=== PATIENT | female | born 1995 | race Caucasian/White ===

== ENCOUNTER 2022-10-15 08:51 | Emergency (ER) | payer MEDICAID, SELFPAY ==
[2022-10-15 09:14] VITALS: BP 130/70; PULSE 60; RESP 18; TEMP 36.4; O2SAT 98; BMI 31.3
--- NOTE | 2022-10-15 09:28 | ED.GENADULT ---
HPI - General Adult General Time Seen by Provider: 09:28 Date Seen: 10/15/22 Chief complaint: Neck Injury/Pain Stated complaint: LT upperbody pain from neck down Time Seen by Provider: 10/15/22 09:16 Source: patient and RN notes reviewed Mode of arrival: ambulatory Limitations: no limitations History of Present Illness HPI narrative: 26-year-old female who comes in with left neck, shoulder, arm, and upper chest pain that has been going on for several days. No known injury. Pain is worse with movement. She has tried ice which made things worse, heat which helped little bit, and massage which was quite painful. She denies shortness of breath or cough. She says she will have occasional numbness in the hand especially the index and middle fingers. Has not noticed any weakness. Related Data Home Medications Medication Instructions Recorded Confirmed albuterol sulfate 90 mcg/actuation 2 puff inhalation QID PRN dyspnea 10/15/22 10/15/22 aerosol inhaler (Ventolin HFA) azelastine 137 mcg (0.1 %) nasal intranasal 10/15/22 spray aerosol benzonatate 100 mg capsule 100 mg PO 3XD PRN cough 10/15/22 10/15/22 escitalopram oxalate 20 mg tablet 20 mg PO QPM 10/15/22 10/15/22 fluticasone propionate 115 2 puff inhalation BID 10/15/22 10/15/22 mcg-salmeterol 21 mcg/actuation HFA inhaler (Advair HFA) methylphenidate HCl 36 mg 72 mg PO QAM 10/15/22 10/15/22 tablet,extended release 24 hr (Concerta) pantoprazole 20 mg tablet,delayed 20 mg PO DAILY 10/15/22 10/15/22 release prazosin 2 mg capsule 2 mg PO QPM 10/15/22 10/15/22 prednisone 20 mg tablet 40 mg PO DAILY 10/15/22 10/15/22 quetiapine 100 mg tablet 50 mg PO QID PRN 10/15/22 10/15/22 quetiapine 25 mg tablet 25 mg PO BID PRN anxiety 10/15/22 10/15/22 Previous Rx's Medication Instructions Recorded cyclobenzaprine 10 mg tablet 10 mg PO TID PRN muscle spasm #10 10/15/22 tabs gabapentin 300 mg capsule 300 mg PO TID #90 caps 10/15/22 oxycodone 5 mg capsule 5 mg PO Q6H PRN pain #10 caps 10/15/22 prednisone 10 mg tablets in a dose See Rx Instructions PO .COMPLEX 10/15/22 pack #31 ea Allergies Allergy/AdvReac Type Severity Reaction Status Date / Time No Known Drug Allergies Allergy Verified 10/15/22 09:13 Exam Narrative: Exam Narrative: General: Well-developed and well-nourished, no acute distress Head: Atraumatic and normocephalic Eyes: Pupils are equal reactive, extraocular motions intact, conjunctiva clear ENT: External nose and ears are normal, posterior pharynx without erythema or exudate Neck: Left paraspinous cervical tenderness, no midline tenderness, full spontaneous range of motion the neck Heart: Regular rate and rhythm no murmurs or thrills Lungs: Clear to auscultation bilaterally without wheezes or crackles Abdomen: Soft, nontender, nondistended with active bowel sounds Musculoskeletal: Left cervical and thoracic paraspinous, trapezius, and rhomboid tenderness. Tenderness of the left upper pectoral muscle. Neurologic: Awake, alert, and oriented x3, no gross focal neurologic deficits, cranial nerves intact as tested. Left arm strength with beaver trapper, wrist extension and flexion, biceps flexion extension intact. Sensation of the left arm intact. Psych: Mood and affect are appropriate Skin: No rashes Const: Vital Signs, click to edit/add: Vital Signs - 24 hr 10/15/22 09:14 Temperature 97.5 F L Pulse Rate [Left P ulse Oximeter] 60 Respiratory Rate 18 Blood Pressure [Le ft Upper Arm] 130/70 Pulse Oximetry 98 Oxygen Delivery Me thod Room Air Course Course Hospital Course: Patient seen and examined, prior records reviewed. Patient presents today with left-sided neck, shoulder, and arm pain. No known injury. No midline tenderness and full spontaneous range of motion the neck. Strength and sensation of the left arm intact. Symptoms are most consistent with cervical radiculopathy. Patient will be started on prednisone, gabapentin, oxycodone. Follow-up with clinic next week for consideration for imaging versus physical therapy. Vital Signs Vital signs: Initial Vital Signs Temperature 97.5 F L 10/15/22 09:14 Temperature Source Temporal Artery Scan 10/15/22 09:14 Pulse Rate 60 10/15/22 09:14 Pulse Rhythm Regular 10/15/22 09:14 Pulse Strength 3+ Normal 10/15/22 09:14 Respiratory Rate 18 10/15/22 09:14 Blood Pressure 130/70 10/15/22 09:14 Blood Pressure Mean 90 10/15/22 09:14 Blood Pressure Position Sitting 10/15/22 09:14 Pulse Oximetry 98 10/15/22 09:14 Oxygen Delivery Method Room Air 10/15/22 09:14 Vital Signs Temperature 97.5 F L 10/15/22 09:14 Pulse Rate 60 10/15/22 09:14 Respiratory Rate 18 10/15/22 09:14 Blood Pressure 130/70 10/15/22 09:14 Pulse Oximetry 98 10/15/22 09:14 Oxygen Delivery Method Room Air 10/15/22 09:14 Temperature 97.5 F L 10/15/22 09:14 Pulse Rate 60 10/15/22 09:14 Respiratory Rate 18 10/15/22 09:14 Blood Pressure 130/70 10/15/22 09:14 Pulse Oximetry 98 10/15/22 09:14 Oxygen Delivery Method Room Air 10/15/22 09:14 Discharge Plan Discharge Clinical Impression: Cervical radiculopathy Patient Disposition: Home, Self-Care Condition: Stable Instructions: Cervical Radiculopathy (ED) Additional Instructions: Take medications as prescribed. Follow-up with your doctor in 1 week for consideration for physical therapy verses further evaluation. Activity Level: Activity as Tolerated Discharge Diet: Regular Prescriptions: New prednisone 10 mg tablets,dose pack See Rx Instructions .ROUTE .COMPLEX Qty: 31 0RF Rx Instructions: 40 mg daily for 3 days, then 30 mg daily for 3 days, then 20 mg daily for 3 days, then 10 mg daily for 3 days, then 5 mg daily for 2 days oxycodone 5 mg capsule 5 mg PO Q6H PRN (Reason: pain) Qty: 10 0RF gabapentin 300 mg capsule 300 mg PO TID Qty: 90 2RF cyclobenzaprine 10 mg tablet 10 mg PO TID PRN (Reason: muscle spasm) Qty: 10 0RF No Action quetiapine 25 mg tablet 25 mg PO BID PRN (Reason: anxiety) prednisone 20 mg tablet 40 mg PO DAILY quetiapine 100 mg tablet 50 mg PO QID PRN pantoprazole 20 mg tablet,delayed release (DR/EC) 20 mg PO DAILY benzonatate 100 mg capsule 100 mg PO 3XD PRN (Reason: cough) azelastine 137 mcg (0.1 %) aerosol,spray INTRANASAL Patient Comments: [NO ORIGINAL SIG] albuterol sulfate [Ventolin HFA] 90 mcg/actuation HFA aerosol inhaler 2 puff INHALATION QID PRN (Reason: dyspnea) prazosin 2 mg capsule 2 mg PO QPM methylphenidate HCl [Concerta] 36 mg tablet extended release 24hr 72 mg PO QAM escitalopram oxalate 20 mg tablet 20 mg PO QPM fluticasone propion-salmeterol [Advair HFA] 115-21 mcg/actuation HFA aerosol inhaler 2 puff INHALATION BID Stand Alone Forms: MyHealth Info Instructions
[2022-10-15] MEDS: KETOROLAC 30 MG/ML inj IM (10:03)
== END 2022-10-15 10:06 | disposition home or self-care (01) ==
PROVIDERS: Emergency Provider Family Medicine; PCP Nurse Practitioner Family
DX: M54.12 Radiculopathy, cervical region (principal)
CPT/HCPCS: 96372; 99283; 99284; J1885